=== PATIENT | male | born 1980 | race Hispanic/Latino ===

== ENCOUNTER 2020-02-08 16:23 | Inpatient (IN) | payer BC, OTHER ==
[~2020-02-08] VITALS: Ht 167.6 cm; Wt 115.7 kg
[2020-02-08] MEDS ORDERED: MORPHINE SULFATE 4 MG/1ML SYG ONE ×2 (16:40→23:54)
[2020-02-08] MEDS ORDERED: ONDANSETRON HCL 4 MG/2 ML VIAL ONE (16:40)
[2020-02-08 17:00] LABS: BASOPHILS % (AUTO) 0.3 % (0.0-5.0); EOSINOPHILS % (AUTO) 0.2 % (0.0-8.0); HEMATOCRIT 45.5 % (42-54); LYMPHOCYTES % (AUTO) 14.5 % (21.0-51.0); MEAN CORPUSCULAR HEMOGLOBIN 28.4 pg (27.0-33.0); MEAN CORPUSCULAR HGB CONC 34.3 g/dL (32.0-36.0); MEAN CORPUSCULAR VOLUME 82.7 fL (79-99); MONOCYTES % (AUTO) 5.3 % (3.0-13.0); NEUTROPHILS % (AUTO) 79.1 % (40.0-77.0); PLATELET COUNT (AUTO) 419 K/uL (130-400); RED CELL DISTRIBUTION WIDTH 13.3 % (11.0-15.5); WHITE BLOOD COUNT (AUTO) 21.4 K/uL (4.8-10.8)
[2020-02-08 17:18] LABS: CREATININE 1.9 mg/dL (0.5-1.5); POTASSIUM 3.4 mmol/L (3.5-5.1)
[2020-02-08 17:22] LABS: BILIRUBIN,TOTAL 0.4 mg/dL (0.2-1.0); TOTAL PROTEIN, SERUM 7.9 g/dL (6.0-8.3)
[2020-02-08] MEDS ORDERED: ZOSYN 3.375GM+NS 50ML 50 ML IV ONE (17:30)
[2020-02-08 17:42] LABS: APPEARANCE,URINE Clear (CLEAR); BILIRUBIN,URINE Negative (NEGATIVE); COLOR,URINE Yellow (YELLOW); GLUCOSE, URINE (UA) TRACE mg/dL (NEGATIVE); KETONES,URINE Trace mg/dL (NEGATIVE); LEUKOCYTE ESTERASE ,URINE Negative (NEGATIVE); NITRATE,URINE Negative (NEGATIVE); OCCULT BLOOD,URINE Negative (NEGATIVE); PH,URINE 7.5 (5.0-8.0); PROTEIN,URINE Negative (NEGATIVE)
[2020-02-08 18:04] LABS: BACTERIA,URINE Rare /HPF (None Seen); MUCUS,URINE Few LPF (None Seen); RBC,URINE 0-1 /HPF (0-1); SQUAMOUS EPITHELIAL CELL,UR Rare /HPF (0-2); WBC,URINE 0-1 /HPF (0-1)
[2020-02-08 18:05] LABS: HYALINE CASTS, URINE 0-1 /LPF (0-1 /LPF)
[2020-02-08] MEDS ORDERED: MORPHINE SULFATE 2 MG/ML 1ML SYG ONE (19:39)
[2020-02-08] MEDS ORDERED: SODIUM CHLORIDE 0.9% 1000ML 1,000 ML IV SCH (20:01)
[2020-02-08] MEDS ORDERED: DIPHENHYDRAMINE HCL 25 MG CAPSULE PO PRN (20:15)
[2020-02-08] MEDS ORDERED: NITROGLYCERIN 0.4 MG SL TAB SL PRN (20:15)
[2020-02-08] MEDS ORDERED: LACTULOSE 20 GM/30 ML UDCUP PO PRN (20:15)
[2020-02-08] MEDS ORDERED: MAG HYDROX/AL HYDROX/SIMETH 30 ML, LIDOCAINE HCL 2% VISCOUS 30 ML, DIPHENHYDRAMINE HCL ... PO PRN ×3 (20:15)
[2020-02-08] MEDS ORDERED: GUAIFENESIN-DM 200/20 MG 10 ML PO PRN (20:15)
[2020-02-08] MEDS ORDERED: LIDOCAINE HCL 2% VISCOUS 30 ML, MAG HYDROX/AL HYDROX/SIMETH 30 ML, BELLADONNA-PHENOBARB... PO PRN ×3 (20:15)
[2020-02-08] MEDS ORDERED: MAG HYDROX/AL HYDROX/SIMETH ES 30 ML SUSP UDCUP PO PRN (20:15)
[2020-02-08] MEDS ORDERED: DiphenhydrAMINE HCL 50 MG/ML VIAL IV PRN (20:15)
[2020-02-08] MEDS ORDERED: MORPHINE SULFATE 2 MG/ML 1ML SYG IV PRN (20:15)
[2020-02-08] MEDS ORDERED: ACETAMINOPHEN 325 MG TAB PO PRN ×2 (20:15)
[2020-02-08] MEDS ORDERED: ZOLPIDEM TARTRATE 5 MG TAB PO PRN (20:15)
[2020-02-08] MEDS ORDERED: METRONIDAZOLE 500MG/100ML BAG 100 ML ONE (21:36)
[2020-02-08] MEDS ORDERED: FAMOTIDINE/PF 20 MG/2 ML VIAL IV ONE (21:36)
[2020-02-08] MEDS ORDERED: CEFEPIME HCL 2 GM VIAL ONE (21:36)
[2020-02-09] VITALS (17 sets, daily range): BP systolic 103–152; BP diastolic 53–86
[2020-02-09] MEDS ORDERED: LIDOCAINE HCL-MPF 1% 2ML VIAL IJ PRN (01:15)
[2020-02-09] MEDS ORDERED: POTASSIUM CHLORIDE 20 MEQ/100 ML BAG IV SCH (01:15)
[2020-02-09] MEDS ORDERED: POTASSIUM CHLORIDE 20MEQ/100ML 100 ML IV PRN (01:15)
[2020-02-09] MEDS ORDERED: POTASSIUM CHLORIDE 20MEQ/100ML 100 ML IV ONE (03:06)
[2020-02-09] MEDS ORDERED: POTASSIUM CHLORIDE 20MEQ/100ML 100 ML IV SCH (03:15)
[2020-02-09] MEDS: METRONIDAZOLE 500MG/100ML BAG 100 ML IV SCH ×3 (05:30→21:24)
[2020-02-09] MEDS ORDERED: METRONIDAZOLE 500MG/100ML BAG 100 ML ONE (06:24)
[2020-02-09 06:54] LABS: BASOPHILS % (AUTO) 0.1 % (0.0-5.0); HEMATOCRIT 43.1 % (42-54); LYMPHOCYTES % (AUTO) 9.1 % (21.0-51.0); MEAN CORPUSCULAR HEMOGLOBIN 28.6 pg (27.0-33.0); MEAN CORPUSCULAR HGB CONC 34.3 g/dL (32.0-36.0); MEAN CORPUSCULAR VOLUME 83.2 fL (79-99); MONOCYTES % (AUTO) 7.2 % (3.0-13.0); NEUTROPHILS % (AUTO) 83.1 % (40.0-77.0); PLATELET COUNT (AUTO) 381 K/uL (130-400); RED BLOOD CELL COUNT(AUTO) 5.18 MIL/uL (4.50-6.20); RED CELL DISTRIBUTION WIDTH 13.5 % (11.0-15.5); WHITE BLOOD COUNT (AUTO) 24.1 K/uL (4.8-10.8)
[2020-02-09 07:11] LABS: ALBUMIN 3.3 g/dL (3.5-5.0); BILIRUBIN,TOTAL 0.5 mg/dL (0.2-1.0); CREATININE 0.7 mg/dL (0.5-1.5); MAGNESIUM 1.9 mg/dL (1.80-2.40); POTASSIUM 3.3 mmol/L (3.5-5.1)
[2020-02-09] MEDS ORDERED: MORPHINE SULFATE 4 MG/1ML SYG ONE (09:57)
--- NOTE | 2020-02-09 14:18 | NUR ---
CM NOTE/IA UNSUCCESSFUL UNABLE TO MEET WITH PATIENT. NO PHONE IN ROOM, STILL IN ED ROOM. CONTACT NUMBERS ON FACESHEET FOR SARINA CRUZ [phone], NON WORKING NUMBER . CALLED PATIENTS CELL PHONE, , NO ANSWER. CM TO FOLLOW UP FOR IA. Addendum: 02/09/20 at 1420 by KAPIL ESCOBEDO RN CM Amended: Links added.
[2020-02-09] MEDS ORDERED: DEXAMETHASONE SOD PHOSPHATE 10MG/ML 1ML VIAL ONE (15:20)
[2020-02-09] MEDS ORDERED: FENTANYL CITRATE PF 50 MCG/1 ML 2ML VIAL ONE (15:21)
[2020-02-09] MEDS ORDERED: MIDAZOLAM HCL 1 MG/ML 2ML VIAL ONE (15:21)
[2020-02-09] MEDS ORDERED: PROPOFOL 10 MG/ML 20ML VIAL IV ONE (15:21)
[2020-02-09] MEDS ORDERED: ONDANSETRON HCL 4 MG/2 ML VIAL ONE (15:21)
[2020-02-09] MEDS ORDERED: LIDOCAINE PF 2% 5ML ABBOJECT ONE (15:21)
[2020-02-09] MEDS ORDERED: ROCURONIUM 10MG/1ML SYR 10 MG/ML ML ONE ×2 (15:22→15:52)
[2020-02-09] MEDS ORDERED: EPHEDRINE SULFATE 50 MG/ML AMPULE ONE (15:34)
[2020-02-09] MEDS ORDERED: NEOSTIGMINE 5MG/5ML SYR IV ONE (16:15)
[2020-02-09] MEDS ORDERED: MEPERIDINE-PF 25 MG/ML SYG ONE (16:24)
--- NOTE | 2020-02-09 18:00 | NUR ---
TRANSFER pt transfer via bed from PACU report given by Yeny VENEGAS pt awake alert x 3 bandaid present admission assessment completed
[2020-02-09] MEDS ORDERED: SERT25TA5 PO (18:33)
[2020-02-09] MEDS: CEFEPIME HCL 2 GM VIAL IVP SCH ×2 (21:24→21:33)
[2020-02-09] MEDS: FAMOTIDINE/PF 20 MG/2 ML VIAL IV SCH ×2 (21:24→21:41)
[2020-02-09] MEDS: MORPHINE SULFATE 4 MG/1ML SYG IV PRN (21:26)
[2020-02-10 00:14] VITALS: BP 112/66
[2020-02-10 04:12] VITALS: BP 118/69
[2020-02-10] MEDS: METRONIDAZOLE 500MG/100ML BAG 100 ML IV SCH ×4 (04:15→20:56)
[2020-02-10 04:19] LABS: BASOPHILS % (AUTO) 0.2 % (0.0-5.0); HEMATOCRIT 42.9 % (42-54); MEAN CORPUSCULAR HEMOGLOBIN 28.7 pg (27.0-33.0); MEAN CORPUSCULAR HGB CONC 34.5 g/dL (32.0-36.0); MEAN CORPUSCULAR VOLUME 83.3 fL (79-99); MONOCYTES % (AUTO) 6.6 % (3.0-13.0); NEUTROPHILS % (AUTO) 86.5 % (40.0-77.0); PLATELET COUNT (AUTO) 375 K/uL (130-400); RED BLOOD CELL COUNT(AUTO) 5.15 MIL/uL (4.50-6.20); RED CELL DISTRIBUTION WIDTH 13.8 % (11.0-15.5); WHITE BLOOD COUNT (AUTO) 22.6 K/uL (4.8-10.8)
[2020-02-10 04:35] LABS: CREATININE 1.2 mg/dL (0.5-1.5); MAGNESIUM 1.8 mg/dL (1.80-2.40); PHOSPHORUS 2.5 mg/dL (2.5-4.9); POTASSIUM 3.6 mmol/L (3.5-5.1)
--- NOTE | 2020-02-10 07:30 | NUR ---
SHOWER pt up to shower per request instructed pt to use IS as instructed removed 3 bandaides and replaced after shower
[2020-02-10 08:40] VITALS: BP 124/82
[2020-02-10] MEDS: FAMOTIDINE/PF 20 MG/2 ML VIAL IV SCH ×2 (09:22→20:56)
[2020-02-10] MEDS: CEFEPIME HCL 2 GM VIAL IVP SCH ×2 (09:22→20:56)
[2020-02-10] MEDS: MORPHINE SULFATE 4 MG/1ML SYG IV PRN ×2 (09:24→16:08)
[2020-02-10] MEDS: ONDANSETRON HCL 4 MG/2 ML VIAL IV PRN ×2 (09:24→16:09)
[2020-02-10 11:38] VITALS: BP 127/72
--- NOTE | 2020-02-10 15:29 | NUR ---
IV left hand infiltrated pt complain of pain at iv site restarted iv 20 gauge right hand x 1 attempt
[2020-02-10 16:52] VITALS: BP 123/72
[2020-02-10] MEDS ORDERED: POTASSIUM CHLORIDE 10% ELIXIR 20 MEQ/15 ML UDCUP PO PRN (19:00)
[2020-02-10] MEDS ORDERED: MAGNESIUM 2GM PREMIX 50ML 50 ML IV PRN (19:00)
[2020-02-10 20:03] VITALS: BP 123/70
[2020-02-10] MEDS ORDERED: SODIUM CHLORIDE 0.9% 500ML 500 ML IV ONE (21:02)
[2020-02-11] VITALS (7 sets, daily range): BP systolic 109–126; BP diastolic 59–81
[2020-02-11] MEDS: MORPHINE SULFATE 4 MG/1ML SYG IV PRN (01:21)
[2020-02-11] MEDS: METRONIDAZOLE 500MG/100ML BAG 100 ML IV SCH ×3 (04:44→21:26)
[2020-02-11 04:48] LABS: BASOPHILS % (AUTO) 0.2 % (0.0-5.0); EOSINOPHILS % (AUTO) 0.4 % (0.0-8.0); HEMATOCRIT 41.6 % (42-54); LYMPHOCYTES % (AUTO) 8.6 % (21.0-51.0); MEAN CORPUSCULAR HEMOGLOBIN 28.2 pg (27.0-33.0); MEAN CORPUSCULAR HGB CONC 34.1 g/dL (32.0-36.0); MEAN CORPUSCULAR VOLUME 82.7 fL (79-99); MONOCYTES % (AUTO) 6.5 % (3.0-13.0); NEUTROPHILS % (AUTO) 83.4 % (40.0-77.0); PLATELET COUNT (AUTO) 343 K/uL (130-400); RED BLOOD CELL COUNT(AUTO) 5.03 MIL/uL (4.50-6.20); WHITE BLOOD COUNT (AUTO) 20.5 K/uL (4.8-10.8)
[2020-02-11 05:12] LABS: ALBUMIN 2.4 g/dL (3.5-5.0); BILIRUBIN,TOTAL 0.7 mg/dL (0.2-1.0); CREATININE 0.9 mg/dL (0.5-1.5); MAGNESIUM 2.5 mg/dL (1.80-2.40); POTASSIUM 3.1 mmol/L (3.5-5.1); TOTAL PROTEIN, SERUM 6.8 g/dL (6.0-8.3)
[2020-02-11] MEDS: POTASSIUM CHLORIDE 20 MEQ ERTAB PO PRN ×3 (06:53→11:52)
[2020-02-11] MEDS: CEFEPIME HCL 2 GM VIAL IVP SCH ×2 (08:33→21:26)
[2020-02-11] MEDS: FAMOTIDINE/PF 20 MG/2 ML VIAL IV SCH ×2 (08:33→21:26)
[2020-02-12] MEDS: ONDANSETRON HCL 4 MG/2 ML VIAL IV PRN ×4 (02:32→23:22)
[2020-02-12 03:42] VITALS: BP 131/74
[2020-02-12 04:29] LABS: BASOPHILS % (AUTO) 0.3 % (0.0-5.0); EOSINOPHILS % (AUTO) 1.2 % (0.0-8.0); HEMATOCRIT 44.9 % (42-54); LYMPHOCYTES % (AUTO) 7.7 % (21.0-51.0); MEAN CORPUSCULAR HEMOGLOBIN 27.8 pg (27.0-33.0); MEAN CORPUSCULAR HGB CONC 33.4 g/dL (32.0-36.0); MEAN CORPUSCULAR VOLUME 83.3 fL (79-99); MONOCYTES % (AUTO) 6.7 % (3.0-13.0); NEUTROPHILS % (AUTO) 82.9 % (40.0-77.0); PLATELET COUNT (AUTO) 424 K/uL (130-400); RED BLOOD CELL COUNT(AUTO) 5.39 MIL/uL (4.50-6.20); RED CELL DISTRIBUTION WIDTH 13.6 % (11.0-15.5); WHITE BLOOD COUNT (AUTO) 21.6 K/uL (4.8-10.8)
[2020-02-12 05:12] LABS: ALBUMIN 2.6 g/dL (3.5-5.0); BILIRUBIN,TOTAL 0.8 mg/dL (0.2-1.0); CREATININE 0.9 mg/dL (0.5-1.5); POTASSIUM 3.4 mmol/L (3.5-5.1); TOTAL PROTEIN, SERUM 7.7 g/dL (6.0-8.3)
[2020-02-12] MEDS: METRONIDAZOLE 500MG/100ML BAG 100 ML IV SCH ×3 (05:15→21:10)
[2020-02-12] MEDS: LIDOCAINE HCL-MPF 1% 2ML VIAL IV PRN (06:43)
[2020-02-12] MEDS: POTASSIUM CHLORIDE 20MEQ/100ML 100 ML IV PRN (06:44)
[2020-02-12 08:00] VITALS: BP 130/78
[2020-02-12] MEDS: SERTRALINE HCL 50 MG TABLET PO SCH (09:57)
[2020-02-12] MEDS: FAMOTIDINE/PF 20 MG/2 ML VIAL IV SCH ×2 (09:57→21:10)
[2020-02-12] MEDS: CEFEPIME HCL 2 GM VIAL IVP SCH ×2 (09:57→21:10)
[2020-02-12 11:00] VITALS: BP 133/84
[2020-02-12] MEDS: POTASSIUM CHLORIDE 20 MEQ ERTAB PO PRN (14:27)
[2020-02-12 16:00] VITALS: BP 138/87
--- NOTE | 2020-02-12 18:39 | NUR ---
DCP CM met with pt discussed dc plans. Pt is independent prior to admission, lives at home with parents. Denies any equipments/services. Feels safe to go back home, parents able to assist with transportation and needs as necessary. DC plan to home once stable. CM to cont to follow up.
[2020-02-12 20:50] VITALS: BP 148/80
[2020-02-13 00:21] VITALS: BP 133/80
[2020-02-13 03:50] VITALS: BP 128/79
[2020-02-13 04:59] LABS: BASOPHILS % (AUTO) 0.8 % (0.0-5.0); EOSINOPHILS % (AUTO) 1.7 % (0.0-8.0); MEAN CORPUSCULAR HEMOGLOBIN 28.2 pg (27.0-33.0); MEAN CORPUSCULAR HGB CONC 33.7 g/dL (32.0-36.0); MEAN CORPUSCULAR VOLUME 83.6 fL (79-99); MONOCYTES % (AUTO) 10.8 % (3.0-13.0); NEUTROPHILS % (AUTO) 76.8 % (40.0-77.0); PLATELET COUNT (AUTO) 354 K/uL (130-400); RED CELL DISTRIBUTION WIDTH 13.6 % (11.0-15.5); WHITE BLOOD COUNT (AUTO) 17.9 K/uL (4.8-10.8)
[2020-02-13 05:30] LABS: ALBUMIN 2.6 g/dL (3.5-5.0); BILIRUBIN,TOTAL 0.7 mg/dL (0.2-1.0); CREATININE 0.9 mg/dL (0.5-1.5); POTASSIUM 3.3 mmol/L (3.5-5.1); TOTAL PROTEIN, SERUM 7.6 g/dL (6.0-8.3)
[2020-02-13] MEDS: METRONIDAZOLE 500MG/100ML BAG 100 ML IV SCH ×3 (06:31→20:23)
[2020-02-13] MEDS: POTASSIUM CHLORIDE 20 MEQ ERTAB PO PRN (06:32)
[2020-02-13 08:00] VITALS: BP 129/77
[2020-02-13] MEDS: FAMOTIDINE/PF 20 MG/2 ML VIAL IV SCH ×2 (09:05→20:24)
[2020-02-13] MEDS: ONDANSETRON HCL 4 MG/2 ML VIAL IV PRN ×2 (09:05→20:24)
[2020-02-13] MEDS: CEFEPIME HCL 2 GM VIAL IVP SCH ×2 (09:05→20:23)
[2020-02-13] MEDS: SERTRALINE HCL 50 MG TABLET PO SCH (09:06)
[2020-02-13] MEDS: POTASSIUM CHLORIDE 20MEQ/100ML 100 ML IV PRN (09:18)
[2020-02-13] MEDS: LIDOCAINE HCL-MPF 1% 2ML VIAL IV PRN (10:15)
[2020-02-13 11:00] VITALS: BP 130/77
--- NOTE | 2020-02-13 14:27 | NUR ---
RD NOTIFICATION Pt S/p Lap Appendectomy. Pt with Nausea and vomiting with PO intake and especially at night. Pending CT of abdomen and pelvis as per EMR. Zofran in place. Obesity Class III (41.2). Recommend NPO and alternate means nutrition pending CT and continued POC. Recommend gradual advancement of diet as tolerated to GI Soft diet order when medically feasible. Recommend 60gm ProMod QD as medically feasible. RD to continue to monitor. Please notify as additional nutrition concerns arise. Thank you. Addendum: 02/13/20 at [address] RD Amended: Links added.
--- NOTE | 2020-02-13 15:28 | NUR ---
CT REFUSAL Patient refused CT of abdomen and pelvis and has signed refusal.
[2020-02-13 16:00] VITALS: BP 136/71
[2020-02-13 20:00] VITALS: BP 126/74
[2020-02-14] VITALS (7 sets, daily range): BP systolic 120–147; BP diastolic 67–85
--- NOTE | 2020-02-14 00:41 | NUR ---
ROUNDS PATIENT AWAKE AND ALERT WATCHING TV IN BED AT THIS TIME. NO COMPLAINTS OF PAIN VOICED AT THIS TIME. VITALS STABLE. AFEBRILE. TOLERATING IV ABT WELL. NO ADVERSE REACTIONS NOTED. NO NAUSEA OR VOMITING NOTED. HOB ELEVATED. CALL LIGHT WITHIN REACH. WILL CONTINUE TO BE OBSERVED. Addendum: 02/14/20 at 0047 by MARTA ESCOBEDO RN RN Amended: Links added.
[2020-02-14] MEDS: METRONIDAZOLE 500MG/100ML BAG 100 ML IV SCH ×3 (04:22→20:15)
[2020-02-14 04:23] LABS: BASOPHILS % (AUTO) 0.8 % (0.0-5.0); HEMATOCRIT 42.4 % (42-54); LYMPHOCYTES % (AUTO) 11.2 % (21.0-51.0); MEAN CORPUSCULAR HEMOGLOBIN 28.2 pg (27.0-33.0); MEAN CORPUSCULAR HGB CONC 34.2 g/dL (32.0-36.0); MEAN CORPUSCULAR VOLUME 82.5 fL (79-99); MONOCYTES % (AUTO) 10.6 % (3.0-13.0); NEUTROPHILS % (AUTO) 69.7 % (40.0-77.0); PLATELET COUNT (AUTO) 453 K/uL (130-400); RED BLOOD CELL COUNT(AUTO) 5.14 MIL/uL (4.50-6.20); RED CELL DISTRIBUTION WIDTH 13.4 % (11.0-15.5); WHITE BLOOD COUNT (AUTO) 18.9 K/uL (4.8-10.8)
[2020-02-14 04:51] LABS: ALBUMIN 2.4 g/dL (3.5-5.0); BILIRUBIN,TOTAL 0.6 mg/dL (0.2-1.0); CREATININE 0.9 mg/dL (0.5-1.5); POTASSIUM 3.3 mmol/L (3.5-5.1); TOTAL PROTEIN, SERUM 7.1 g/dL (6.0-8.3)
[2020-02-14] MEDS: CEFEPIME HCL 2 GM VIAL IVP SCH ×2 (09:57→20:15)
[2020-02-14] MEDS: FAMOTIDINE/PF 20 MG/2 ML VIAL IV SCH ×2 (09:58→21:00)
[2020-02-14] MEDS: SERTRALINE HCL 50 MG TABLET PO SCH (09:58)
--- NOTE | 2020-02-14 10:00 | NUR ---
IV SITE right forearm iv site swollen DCd restarted in left wrist x 2 attempts good blood return observed
[2020-02-14] MEDS ORDERED: IOHEXOL-350 75 ML VIAL IV ONE (10:01)
--- NOTE | 2020-02-14 10:22 | NUR ---
RADIOLOGY pt to xray via wheelchair for CT of abd with IV contrast consent signed prior to transfer
[2020-02-15 03:26] VITALS: BP 124/75
[2020-02-15] MEDS: METRONIDAZOLE 500MG/100ML BAG 100 ML IV SCH ×3 (04:42→20:30)
[2020-02-15 05:27] LABS: BASOPHILS % (AUTO) 0.3 % (0.0-5.0); EOSINOPHILS % (AUTO) 2.8 % (0.0-8.0); HEMATOCRIT 42.9 % (42-54); LYMPHOCYTES % (AUTO) 17.7 % (21.0-51.0); MEAN CORPUSCULAR HEMOGLOBIN 28.2 pg (27.0-33.0); MEAN CORPUSCULAR HGB CONC 33.8 g/dL (32.0-36.0); MEAN CORPUSCULAR VOLUME 83.3 fL (79-99); MONOCYTES % (AUTO) 8.8 % (3.0-13.0); NEUTROPHILS % (AUTO) 62.9 % (40.0-77.0); PLATELET COUNT (AUTO) 469 K/uL (130-400); RED BLOOD CELL COUNT(AUTO) 5.15 MIL/uL (4.50-6.20); RED CELL DISTRIBUTION WIDTH 13.3 % (11.0-15.5); WHITE BLOOD COUNT (AUTO) 18.1 K/uL (4.8-10.8)
[2020-02-15 05:33] LABS: CREATININE 1.1 mg/dL (0.5-1.5); POTASSIUM 3.5 mmol/L (3.5-5.1)
[2020-02-15] MEDS: POTASSIUM CHLORIDE 20 MEQ ERTAB PO PRN ×2 (06:25→09:02)
[2020-02-15 08:00] VITALS: BP 125/72
[2020-02-15] MEDS: CEFEPIME HCL 2 GM VIAL IVP SCH (08:58)
[2020-02-15] MEDS: FAMOTIDINE/PF 20 MG/2 ML VIAL IV SCH ×2 (08:59→20:30)
[2020-02-15] MEDS: SERTRALINE HCL 50 MG TABLET PO SCH (09:00)
[2020-02-15] MEDS: HYDROCODONE/ACETAMINOPHEN 5/325 MG TAB PO PRN ×2 (09:09→23:39)
[2020-02-15 11:00] VITALS: BP 119/64
[2020-02-15 16:00] VITALS: BP 113/70
[2020-02-15 19:40] VITALS: BP 117/67
[2020-02-16 00:08] VITALS: BP 123/68
[2020-02-16 04:07] VITALS: BP 114/69
[2020-02-16] MEDS: METRONIDAZOLE 500MG/100ML BAG 100 ML IV SCH ×3 (04:40→20:12)
[2020-02-16 04:55] LABS: EOSINOPHILS % (AUTO) 2.8 % (0.0-8.0); HEMATOCRIT 41.7 % (42-54); LYMPHOCYTES % (AUTO) 24.8 % (21.0-51.0); MEAN CORPUSCULAR HGB CONC 34.1 g/dL (32.0-36.0); MEAN CORPUSCULAR VOLUME 82.2 fL (79-99); MONOCYTES % (AUTO) 8.3 % (3.0-13.0); NEUTROPHILS % (AUTO) 53.5 % (40.0-77.0); PLATELET COUNT (AUTO) 487 K/uL (130-400); RED BLOOD CELL COUNT(AUTO) 5.07 MIL/uL (4.50-6.20); RED CELL DISTRIBUTION WIDTH 13.3 % (11.0-15.5); WHITE BLOOD COUNT (AUTO) 16.4 K/uL (4.8-10.8)
[2020-02-16 05:06] LABS: CREATININE 0.9 mg/dL (0.5-1.5); POTASSIUM 3.6 mmol/L (3.5-5.1)
[2020-02-16 08:00] VITALS: BP 116/63
[2020-02-16] MEDS: SERTRALINE HCL 50 MG TABLET PO SCH (09:27)
[2020-02-16] MEDS: FAMOTIDINE/PF 20 MG/2 ML VIAL IV SCH ×2 (09:27→20:12)
[2020-02-16 11:33] VITALS: BP 114/80
[2020-02-16] MEDS: AMOXICILLIN/POTASSIUM CLAV 875-125 TABLET PO SCH ×2 (12:48→23:23)
[2020-02-16 16:00] VITALS: BP 126/72
[2020-02-16] MEDS: POTASSIUM CHLORIDE 20 MEQ ERTAB PO PRN ×2 (19:23→21:31)
[2020-02-16] MEDS: HYDROCODONE/ACETAMINOPHEN 5/325 MG TAB PO PRN (19:24)
[2020-02-16 20:00] VITALS: BP 124/66
--- NOTE | 2020-02-16 20:15 | NUR ---
MEDS SHIFT ASSESSMENT DONE, PLEASE REFER TO CHART. DUE MEDS ADMINISTERED, TOLERATED WELL. CALL LIGHT WITHIN REACH. WILL MONITOR PT. Addendum: 02/16/20 at 2147 by JEANMARIE KAN RN RN Amended: Links added.
--- NOTE | 2020-02-16 21:35 | NUR ---
MEDS IV FLAGYL FINISHED, SALINE LOCKED PIV. SECOND DOSE OF POTASSIUM PO PER PROTOCOL GIVEN. ENCOURAGED TO REST AND SLEEP. CALL LIGHT WITHIN REACH. WILL MONITOR PT.
[2020-02-17] VITALS: BP 109/62
--- NOTE | 2020-02-17 01:49 | NUR ---
ROUNDS PT RESTING WELL, FAIRLY ASLEEP. NO DISTRESS NOTED. KEPT COMFORTABLE AND UNDISTURBED. CALL LIGHT WITHIN REACH. WILL MONITOR PT.
[2020-02-17] MEDS: METRONIDAZOLE 500MG/100ML BAG 100 ML IV SCH (04:03)
[2020-02-17 04:16] VITALS: BP 109/67
[2020-02-17 04:59] LABS: BASOPHILS % (AUTO) 1.1 % (0.0-5.0); EOSINOPHILS % (AUTO) 2.3 % (0.0-8.0); HEMATOCRIT 46.6 % (42-54); LYMPHOCYTES % (AUTO) 26.9 % (21.0-51.0); MEAN CORPUSCULAR HEMOGLOBIN 27.9 pg (27.0-33.0); MEAN CORPUSCULAR HGB CONC 33.3 g/dL (32.0-36.0); MEAN CORPUSCULAR VOLUME 83.8 fL (79-99); MONOCYTES % (AUTO) 8.1 % (3.0-13.0); NEUTROPHILS % (AUTO) 52.9 % (40.0-77.0); PLATELET COUNT (AUTO) 527 K/uL (130-400); RED BLOOD CELL COUNT(AUTO) 5.56 MIL/uL (4.50-6.20); RED CELL DISTRIBUTION WIDTH 13.3 % (11.0-15.5); WHITE BLOOD COUNT (AUTO) 14.9 K/uL (4.8-10.8)
--- NOTE | 2020-02-17 05:12 | NUR ---
MEDS FALGYL DOSE FINISHED, SALINE LOCKED PT. NO CONCERNS VERBALIZED. NO DISTRESS NOTED. KEPT RESTED AND COMFORTABLE. FOR MORE CARE.
[2020-02-17 05:18] LABS: POTASSIUM 4.2 mmol/L (3.5-5.1)
[2020-02-17 08:00] VITALS: BP 118/58
[2020-02-17] MEDS: SERTRALINE HCL 50 MG TABLET PO SCH (10:34)
[2020-02-17] MEDS: FAMOTIDINE/PF 20 MG/2 ML VIAL IV SCH (10:34)
[2020-02-17] MEDS ORDERED: DOCU-272 PO (10:59)
[2020-02-17] MEDS: AMOXICILLIN/POTASSIUM CLAV 875-125 TABLET PO SCH (11:53)
== END 2020-02-17 13:27 | disposition home or self-care (01) | DRG 339 ==
LOC: EDH 16:23 → EDHIP 20:01 → 3CH 02-09 17:45
PROVIDERS: ADMIT Internal Medicine; ATTEND Internal Medicine
PROC: 0DTJ4ZZ Resection of Appendix, Percutaneous Endoscopic Approach (ICD-10-PCS; principal; 2020-02-09 15:55)
DX: K35.33 Acute appendicitis with perforation, localized peritonitis, and gangrene, with abscess (principal); N17.9 Acute kidney failure, unspecified; J98.11 Atelectasis; Z68.41 Body mass index [BMI] 40.0-44.9, adult; E87.6 Hypokalemia; K76.0 Fatty (change of) liver, not elsewhere classified; K38.1 Appendicular concretions; I10 Essential (primary) hypertension; E66.01 Morbid (severe) obesity due to excess calories
CPT/HCPCS: 36415; 74176; 74177; 80048; 80053; 81001; 83605; 83690; 83735; 84100; 84132; 85025; 87040; 93005; G0378; J0692; J1100; J2001; J2175; J2250; J2270; J2405; J2543; J2704; J2710; J3010; J3480; J3490; J7030; J7040; J7120; Q9967

== ENCOUNTER 2021-02-10 21:14 | Emergency (ER) | payer BC ==
[~2021-02-10] VITALS: Ht 167.6 cm; Wt 127.9 kg
[~2021-02-10 21:14] MED LIST: DOCU-280 PO; SERT-438 PO
[2021-02-10 23:01] VITALS: BP 136/83
[2021-02-11] MEDS ORDERED: MELO7.5T12 PO (01:35)
[2021-02-11] MEDS ORDERED: KETOROLAC 60 MG VIAL (30MG/ML) ONE (01:45)
[2021-02-11 01:53] VITALS: BP 133/81
[2021-02-11] MEDS ORDERED: KETOROLAC 60 MG VIAL (30MG/ML) IM ONE (02:00)
== END 2021-02-11 02:03 | disposition home or self-care (01) ==
LOC: EDH 21:14
DX: K43.9 Ventral hernia without obstruction or gangrene (principal); Z79.1 Long term (current) use of non-steroidal anti-inflammatories (NSAID); Z79.899 Other long term (current) drug therapy; Z90.49 Acquired absence of other specified parts of digestive tract
CPT/HCPCS: 74176; 96372; 99284; J1885

== ENCOUNTER 2022-01-11 21:14 | Emergency (ER) | payer BC ==
[~2022-01-11] VITALS: Ht 167.6 cm; Wt 123.4 kg
[~2022-01-11 21:14] MED LIST changes: +MELO7.5T12 PO
[2022-01-11 21:17] VITALS: BP 162/99
[2022-01-11 21:45] LABS: BASOPHILS % (AUTO) 0.5 % (0.0-5.0); EOSINOPHILS % (AUTO) 2.3 % (0.0-8.0); HEMATOCRIT 47.3 % (42-54); MEAN CORPUSCULAR HEMOGLOBIN 28.8 pg (27.0-33.0); MEAN CORPUSCULAR HGB CONC 34.7 g/dL (32.0-36.0); MONOCYTES % (AUTO) 8.1 % (3.0-13.0); NEUTROPHILS % (AUTO) 47.2 % (40.0-77.0); PLATELET COUNT (AUTO) 442 K/uL (130-400); RED CELL DISTRIBUTION WIDTH 13.2 % (11.0-15.5); WHITE BLOOD COUNT (AUTO) 12.8 K/uL (4.8-10.8)
[2022-01-11 21:53] LABS: CREATININE 1.2 mg/dL (0.5-1.5); POTASSIUM 3.9 mmol/L (3.5-5.1)
[2022-01-11 21:57] LABS: ALBUMIN 3.6 g/dL (3.5-5.0); TOTAL PROTEIN, SERUM 7.5 g/dL (6.0-8.3)
[2022-01-11 22:07] LABS: APPEARANCE,URINE CLEAR (CLEAR); BILIRUBIN,URINE NEGATIVE (NEGATIVE); COLOR,URINE YELLOW (YELLOW); GLUCOSE, URINE (UA) NEGATIVE (NEGATIVE); KETONES,URINE NEGATIVE (NEGATIVE); LEUKOCYTE ESTERASE ,URINE NEGATIVE (NEGATIVE); NITRATE,URINE NEGATIVE (NEGATIVE); OCCULT BLOOD,URINE NEGATIVE (NEGATIVE); PH,URINE 5.5 (5.0-8.0); PROTEIN,URINE NEGATIVE (NEGATIVE); UROBILINOGEN,URINE 0.2 mg/dL (0.2-1.0)
[2022-01-11] MEDS ORDERED: IBUP-2070 PO (23:47)
[2022-01-11] MEDS ORDERED: ACET-2079 PO (23:47)
[2022-01-12] MEDS ORDERED: KETOROLAC 15MG/ML VIAL (15MG/ML) IV ONE
[2022-01-12] MEDS ORDERED: HYDROCODONE/ACETAMINOPHEN 10/325 MG TAB PO ONE
== END 2022-01-12 00:02 | disposition home or self-care (01) ==
LOC: EDH 21:14
DX: K43.9 Ventral hernia without obstruction or gangrene (principal); R10.32 Left lower quadrant pain; Z79.899 Other long term (current) drug therapy; Z90.89 Acquired absence of other organs
CPT/HCPCS: 99284; 74176; 96374; 80053; 83690; 85025; 81003; 36415; J1885

== ENCOUNTER → 2022-06-07 | Outpatient (CLI) | payer OTHER, SELFPAY ==
[~2022-06-07] MED LIST changes: +ACET-2079 PO; +IBUP-2070 PO
== END | disposition home or self-care (01) ==
LOC: LAB 10:08
PROVIDERS: ATTEND Hospitalist
DX: Z20.822 Contact with and (suspected) exposure to COVID-19 (principal)
CPT/HCPCS: 87426